=== PATIENT | female | born 1935 | race Caucasian/White ===

== ENCOUNTER 2016-08-22 11:51 | Observation (INO) ==
--- NOTE | 2016-08-22 12:11 | Emergency Department Note ---
Disposition Clinical Impression: Atrial fibrillation with RVR, Shortness of breath Chest pain Qualifiers: Chest pain type: precordial pain Qualified Code(s): R07.2 - Precordial pain Disposition: Admitted As Inpatient Condition: Good Referrals: Miguel Saravia DO [Primary Care Provider] - Forms: ED Satisfaction Letter SOB HPI - General Chief Complaint: ED Shortness of Breath/Dyspnea Stated Complaint: Shortness of breath Time Seen by Provider: 08/22/16 12:05 Source: patient Mode of arrival: private vehicle Limitations: no limitations Nursing Notes Reviewed: Yes Vital Signs Reviewed: Yes - History of Present Illness Patient relates for 3 days she has had some increased shortness of breath that is described as constant little worse with exertion. She also has been having an anterior chest heaviness which is described as constant and nothing significantly making it better or worse. She presented first to the urgent care and she left there to come here. Urgent care did call to say that she had reported some shortness of breath with a history of atrial fibrillation and heart failure in the distant past. He said she had a temperature of 97.5, heart rate of 65, respiratory rate of 17 and a blood pressure 153/74 with a saturation of 99% on room air. They discussed the options for treatment there and her grandson wanted to bring her to the emergency department. Here she has been dropped off and is ambulating within the normal round without difficulty. She denies cough, fevers or chills. She denies any lower extremity swelling. She denies any nausea, diaphoresis, jaw, back or arm pain. 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 On presentation to the emergency department she is still saying she feels some shortness of breath and heaviness to her chest. She indicates she did have one episode of heart failure in 1997 with none subsequently. She has had atrial fibrillation for which she is on xarelto but no other medications for rate control. She states she could not tolerate other medications. She relates her normal heart rate with the atrial fibrillation will run about 90 but that she does have trouble with her anxiety and her heart rate will get up when she is anxious. She states she feels anxious now. Pt Subjective Complaint: shortness of breath, chest pain Onset (ago): day(s) (3) Severity: moderate Consistency/Duration: constant Improves with: nothing Worsens with: exertion Known history of: congestive heart failure (Remote), other (Atrial fibrillation) Associated symptoms: Reports: chest pain. Denies: pain with inspiration, fever , cough, wheezing, sputum production, orthopnea, lower extremity pain, polyuria , polydipsia, parasthesias, palpitations, hemoptysis, diaphoresis, nausea/ vomiting, syncope, abdominal pain, rash Treatment prior to arrival: none Cough present: No - Related Data Home Medications Medication Instructions Recorded Confirmed Beclomethasone Diprop 80mcg [Qvar 1 puff IH DAILY 09/20/15 08/22/16 80 mcg] Cyanocobalamin (B-12) [Vitamin B12] 1,000 mcg IM QMONTH 09/20/15 08/22/16 Furosemide [Lasix] 20 mg PO DAILY 09/20/15 08/22/16 Ranitidine HCl [Zantac] 150 mg PO BID 09/20/15 08/22/16 Cholecalciferol (Vitamin D3) 2,000 unit PO DAILY 02/13/16 08/22/16 [Vitamin D3] LORazepam [Ativan] 1 mg PO HS 02/13/16 08/22/16 Valsartan [Diovan] 80 mg PO BID 07/24/16 08/22/16 Rivaroxaban [Xarelto] 15 mg PO 1700 08/22/16 08/22/16 Previous Rx's Medication Instructions Recorded Acetaminophen [Tylenol] 650 mg PO Q6HR PRN #20 tablet 07/24/16 Allergies Allergy/AdvReac Type Severity Reaction Status Date / Time azithromycin [From Zithromax] Allergy Hives Verified 08/22/16 11:09 diphenhydramine Allergy Hives Verified 08/22/16 11:09 [From Benadryl] All systems ED: reviewed and negative except as stated. Past Medical History - Past Medical History Attestation: Yes The following information was validated with the patient. Source: patient, nursing notes reviewed Medical history: Reports: atrial fibrillation, CHF, coronary artery disease, other Surgical history: Reports: appendectomy, cholecystectomy, hysterectomy, knee replacement (Left), orthopedic, other (L4-5 hemilaminectomy, left shoulder rotator cuff repair), other (Right leg phlebectomy) Psychiatric history: Reports: anxiety SURVEY PROJECT MANAGER history: Reports: no SURVEY PROJECT MANAGER history - Social History Smoking Status: Never smoker Smokeless Tobacco Status: No Alcohol use: Reports: none Drug use: Reports: none Physical Exam - General Limitations: no limitations General appearance: alert, in no apparent distress - Head Head exam: atraumatic, normocephalic, normal inspection - Eye Eye exam: Present: normal appearance, PERRL, EOMI - ENT ENT exam: normal exam, normal oropharynx, mucous membranes moist - Neck Neck exam: Present: normal inspection, full ROM, trachea midline - Chest Chest inspection: Present: normal inspection, symmetric chest wall rise. Absent : tenderness - Respiratory Respiratory exam: Present: normal lung sounds bilaterally. Absent: respiratory distress, wheezes, prolonged expiratory phase - Cardiovascular Cardiovascular exam: Present: regular rate, normal rhythm, tachycardia, irregular rhythm, normal heart sounds - Abdominal Exam Abdominal exam: Present: soft, Non-Tender, normal bowel sounds. Absent: tenderness, distention, guarding, rebound, rigidity - Extremities Exam Extremities exam: Present: normal inspection, full ROM, normal capillary refill. Absent: tenderness, pedal edema - Expanded Lower Extremity Exam Neurovascular/Tendon exam: Present: normal capillary refill. Absent: motor deficit, sensory deficit, tendon deficit Gait: observed and normal - Back Exam Back exam: Present: normal inspection, full ROM. Absent: tenderness, CVA tenderness (R), CVA tenderness (L) - Neurological Exam Neurological exam: Present: alert, oriented X3, normal gait - Psychiatric Psychiatric exam: Present: normal affect, normal mood - Skin Skin exam: Present: warm, dry, intact, normal color. Absent: diaphoresis, pallor Course Course Narrative: 1315: All EKG, x-ray and lab results were discussed with the patient. She has a borderline elevation to her troponin and we will repeat level at 2 PM. The plan is for observation this facility if there is no significant elevation of her troponin. She currently is not having any chest pain or heaviness. 1500: Laboratory results drawn at about 2:30 PM. Results of the troponin is again elevated and is not 0.05. Patient's primary film sorter works through [employer] in [place]. I will first contact Dr. Guillaume to see if he feels comfortable following troponins at this facility or if he would recommend I contact her primary film sorter. 1510: The patient's current heart rate is back up about 120-130 with respiratory rate of 14, excellent oxygenation and a blood pressure of 140/90. I discussed the patient's evaluation with Dr. Guillaume and he desired to speak to the patient's film sorter prior to her being observed at this facility. 1517: I spoken with Dr. Campbell ([phone]) who advises that she has not tolerated beta blockers well nor Rythmol or flecainide. He would recommend that we carefully replaced some fluids and start her on lowest dose of Cardizem. I recontacted Dr. Guillaume and he is agreeable with her observation at this facility. Vital Signs Temperature 97.1 F L 08/22/16 11:52 Pulse Rate 80 08/22/16 11:52 Respiratory Rate 17 08/22/16 11:52 Blood Pressure 146/85 08/22/16 11:52 O2 Sat by Pulse Oximetry 97 08/22/16 11:52 Temperature 97.1 F L 08/22/16 12:53 Pulse Rate 93 08/22/16 14:31 Respiratory Rate 13 08/22/16 14:31 Blood Pressure 157/88 08/22/16 14:31 O2 Sat by Pulse Oximetry 99 08/22/16 14:31 Oxygen Delivery Oxygen Delivery Nasal Cannula Shortness of Breath/Dyspnea - Differential Diagnosis Likely: congestive heart failure, pneumonia - Medical Records Medical records reviewed: Yes I reviewed the patient's medical records. - Lab Data Lab results reviewed: Yes I reviewed the patient's lab results. Result diagrams: 08/22/16 12:20 08/22/16 12:20 Lab Results 08/22/16 08/22/16 08/22/16 Range/Units 12:20 12:20 12:20 WBC 6.7 (4.3-11.1) K/mcL RBC 4.86 (3.82-4.97) M/mcL Hgb 15.2 (11.5-15.4) g/dL Hct 45.2 H (35.3-44.9) % MCV 93.0 (83.0-100.0) fL MCH 31.3 (28.0-33.3) pg MCHC 33.6 (31.6-35.5) g/dL RDW 12.7 (11.5-14.5) % Plt Count 194 (140-400) K/mcL MPV 9.9 (9.4-12.4) fL Immature Gran % 0.1 (0-4) % Seg Neutrophils % 54.2 % Lymphocytes % 36.2 % Monocytes % 6.7 % Eosinophils % 2.1 % Basophils % 0.7 % Neutrophils # 3.6 (1.6-8.9) K/mcL Lymphocytes # 2.4 (0.6-4.6) K/mcL Monocytes # 0.5 (0.0-1.3) K/mcL Eosinophils # 0.1 (0.0-0.6) K/mcL Basophils # 0.1 (0.0-0.2) K/mcL PT 15.9 H (9.4-12.1) Seconds INR 1.5 APTT 51.0 H (26.0-36.0) Seconds Sodium (136-145) mEq/L Potassium (3.5-4.5) mEq/L Chloride (98-109) mEq/L Carbon Dioxide (19-29) mEq/L BUN (7-20) mg/dL Creatinine (0.57-1.11) mg/dL Est GFR ( Amer) (> 60) Est GFR (Non-Af Amer) (> 60) BUN/Creatinine Ratio (6-26) Glucose (70-99) mg/dL Calculated Osmolality (280-300) Calcium (8.6-10.8) mg/dL Troponin I (0-0.03) ng/mL B-Natriuretic Peptide 348 H (0-100) pg/mL 08/22/16 08/22/16 08/22/16 Range/Units 12:20 12:20 14:25 WBC (4.3-11.1) K/mcL RBC (3.82-4.97) M/mcL Hgb (11.5-15.4) g/dL Hct (35.3-44.9) % MCV (83.0-100.0) fL MCH (28.0-33.3) pg MCHC (31.6-35.5) g/dL RDW (11.5-14.5) % Plt Count (140-400) K/mcL MPV (9.4-12.4) fL Immature Gran % (0-4) % Seg Neutrophils % % Lymphocytes % % Monocytes % % Eosinophils % % Basophils % % Neutrophils # (1.6-8.9) K/mcL Lymphocytes # (0.6-4.6) K/mcL Monocytes # (0.0-1.3) K/mcL Eosinophils # (0.0-0.6) K/mcL Basophils # (0.0-0.2) K/mcL PT (9.4-12.1) Seconds INR APTT (26.0-36.0) Seconds Sodium 140 (136-145) mEq/L Potassium 3.8 (3.5-4.5) mEq/L Chloride 98 (98-109) mEq/L Carbon Dioxide 28 (19-29) mEq/L BUN 21 H (7-20) mg/dL Creatinine 1.12 H (0.57-1.11) mg/dL Est GFR ( Amer) 56 L (> 60) Est GFR (Non-Af Amer) 47 L (> 60) BUN/Creatinine Ratio 19 (6-26) Glucose 89 (70-99) mg/dL Calculated Osmolality 292 (280-300) Calcium 10.9 H (8.6-10.8) mg/dL Troponin I 0.04 H* 0.05 H* (0-0.03) ng/mL B-Natriuretic Peptide (0-100) pg/mL - Radiology Data Radiology results reviewed: Yes I reviewed the patient's radiology results. Single view chest x-ray is performed. This does not demonstrate evidence for infiltrate, effusion, pneumothorax, foreign body or heart failure. The cardiac silhouette is normal. I do not see abnormality to the osseous structures of the chest. This is on my interpretation. Impressions Chest X-Ray 08/22/16 12:06 IMPRESSION: Stable cardiomegaly. No other acute cardiopulmonary findings. D/ / Florence Schwarz MD / Florence Schwarz MD Interpreting Provider: Florence Schwarz MD - EKG Data EKG attestation: Yes I reviewed and interpreted this EKG. EKG shows normal: Reports: axis Rate: Reports: tachycardia (127) Rhythm: Reports: A.Fib [place]/QRS: Reports: RBBB Voltage: Reports: c/w LVH Interpretation: Reports: no acute changes, LVH
[2016-08-22 12:30] LABS: Basophils # 0.1 K/mcL (0.0-0.2); Basophils % 0.7 %; Eosinophils # 0.1 K/mcL (0.0-0.6); Eosinophils % 2.1 %; Hematocrit 45.2 % (35.3-44.9); Hemoglobin 15.2 g/dL (11.5-15.4); Immature Granulocytes % 0.1 % (0-4); Lymphocytes # 2.4 K/mcL (0.6-4.6); Lymphocytes % 36.2 %; Mean Corpuscular HGB Conc 33.6 g/dL (31.6-35.5); Mean Corpuscular Hemoglobin 31.3 pg (28.0-33.3); Mean Platelet Volume 9.9 fL (9.4-12.4); Monocytes # 0.5 K/mcL (0.0-1.3); Monocytes % 6.7 %; Neutrophils # 3.6 K/mcL (1.6-8.9); Platelet Count 194 K/mcL (140-400); Red Blood Count 4.86 M/mcL (3.82-4.97); Red Cell Distribution Width 12.7 % (11.5-14.5); Segmented Neutrophils % 54.2 %
[2016-08-22 12:35] LABS: INR 1.5; Prothrombin Time 15.9 Seconds (9.4-12.1)
[2016-08-22 12:44] LABS: Calcium 10.9 mg/dL (8.6-10.8); Potassium 3.8 mEq/L (3.5-4.5)
[2016-08-22] MEDS ORDERED: 0.9 % Sodium Chloride 1,000 ML IVC SCH (15:30)
[2016-08-22] MEDS ORDERED: Diltiazem CD (24hr) 120 MG CAPSULE PO SCH (15:30)
[2016-08-22] MEDS ORDERED: Ondansetron 4 MG/2 ML VIAL IVP PRN (17:00)
[2016-08-22] MEDS ORDERED: *HR* Rivaroxaban 15 MG TABLET PO SCH (17:00)
[2016-08-22] MEDS ORDERED: Naloxone 0.4 MG/ML INJ IVP PRN (17:00)
[2016-08-22] MEDS ORDERED: Acetaminophen 325 MG TABLET PO PRN (17:00)
[2016-08-22] MEDS ORDERED: MOM Conc 10 ML UD.LIQ PO PRN (17:00)
[2016-08-22] MEDS ORDERED: NON-FORMULARY MEDICATION 1 EACH EACH (Cyanocobalamin (B-12) 1,000 MCG) IM SCH (17:00)
[2016-08-22] MEDS: 0.9 % Sodium Chloride 1,000 ML IVC SCH (18:56)
--- NOTE | 2016-08-22 19:36 | Electrocardiograph Report ---
[address] [place], [place] [address] Test Date: 2016-08-22 Pat Name: Sharita Napoles Department: [id number] Room: [facility] Gender: F Jacquard Loom Weaver: [id number] : 1935 Requested By: Zeferino Kendrick Order Number: [id number] Reading MD: Christian Rosa MD Measurements Intervals [place] Rate: 127 P: 155 [place]: 142 QRS: 52 QRSD: 127 T: -74 QT: 336 QTc: 411 Interpretive Statements ECTOPIC ATRIAL TACHYCARDIA RIGHT BUNDLE BRANCH BLOCK LEFT VENTRICULAR HYPERTROPHY Electronically Signed On 08-22-2016 19:34:47 EDT by Christian Rosa MD
[2016-08-22] MEDS: Valsartan 80 MG TABLET PO SCH (20:35)
[2016-08-22] MEDS ORDERED: *HR* LORazepam 1 MG TABLET PO SCH (21:00)
[2016-08-23] MEDS: Valsartan 80 MG TABLET PO SCH (08:58)
[2016-08-23] MEDS ORDERED: Diltiazem CD (24hr) 120 MG CAPSULE PO SCH (09:00)
[2016-08-23] MEDS ORDERED: Furosemide 20 MG TABLET PO SCH (09:00)
[2016-08-23] MEDS ORDERED: Beclomethasone 80mcg MDI IH SCH (09:00)
[2016-08-23] MEDS ORDERED: Cholecalciferol (D-3) 1,000 UNIT TABLET PO SCH (09:00)
[2016-08-23] MEDS: 0.9 % Sodium Chloride 1,000 ML IVC SCH (09:26)
[2016-08-23 10:28] VITALS: BP 147/61
--- NOTE | 2016-08-23 11:33 | Internal Med History&Physical ---
Date of Encounter: 08/23/16 Time of Encounter: 10:50 Assessment and Plan (1) Chest pain Current visit: Yes Status: Acute Repeat cardiac enzymes were ordered through emergency room. She was given Cardizem in ER per recommendation of her information technology internship. Qualifiers: Chest pain type: precordial pain Qualified Code(s): R07.2 - Precordial pain (2) Atrial fibrillation with RVR Current visit: Yes Status: Acute Her rate is controlled. Continue Cardizem and Xarelto. (3) CKD (chronic kidney disease) stage 3, GFR 30-59 ml/min Current visit: Yes Status: Acute She was unaware of this. Will let her PCP further address as needed. Internal Medicine - H&P: HPI Chief complaint: Dyspnea and chest discomfort Admitted From: Home Plans for Post Hospital Care: Home History of present illness: Ms. Napoles is a 81 year old female who came to the emergency room complaining of dyspnea and chest discomfort onset approximately one week earlier. Symptoms seemed to worsen the past 2-3 days. She went to her regularly scheduled outpatient rehabilitation therapy and mentioned her symptoms to the therapist. She was directed to emergency room. Her troponin was borderline elevated in emergency room and contact was made with her information technology internship. He recommended initiation of Cardizem and overnight observation without transferring for further aggressive care. She was admitted to [facility] floor for ongoing care needs. She states she feels significantly improved now and back to her baseline. Her cardiovascular history is significant for hypertension. She has had atrial fibrillation for the last 4-5 years. She has occasional episode of rapid ventricular response per her report. She reports an exercise stress test and echocardiogram done in fall 2015 in [place] were generally unremarkable. An echocardiogram done in December 2013 at [place] showed LVEF of 60% with moderate diastolic dysfunction of the left ventricle reported. There was mild AI, TR, and pulmonary regurgitation. She denies DVT or pulmonary emboli. She does not get angina or anginal equivalents on routine exertion of her daily housework. Past Med Surg Social Fam HX - Past Medical History Medical history: atrial fibrillation, CHF, coronary artery disease, other Psychiatric history: anxiety - Past Surgical History Surgical History: appendectomy, cholecystectomy, hysterectomy, knee replacement , orthopedic, other, other - Social History Smoking Status: Never smoker Smokeless Tobacco Status: No Alcohol use: none Drug use: none Internal Medicine - H&P: Meds Beclomethasone Diprop 80mcg [Qvar 80 mcg] 1 puff IH DAILY 09/20/15 [History] Cyanocobalamin (B-12) [Vitamin B12] 1,000 mcg IM QMONTH 09/20/15 [History] Furosemide [Lasix] 20 mg PO DAILY 09/20/15 [History] Ranitidine HCl [Zantac] 150 mg PO BID 09/20/15 [History] Cholecalciferol (Vitamin D3) [Vitamin D3] 2,000 unit PO HS 02/13/16 [History] LORazepam [Ativan] 1 mg PO HS 02/13/16 [History] Acetaminophen [Tylenol] 650 mg PO Q6HR PRN #20 tablet 07/24/16 [Rx] Valsartan [Diovan] 80 mg PO DAILY 07/24/16 [History] Rivaroxaban [Xarelto] 15 mg PO 1700 08/22/16 [History] Allergies azithromycin [From Zithromax] Allergy (Verified 08/22/16 11:09) Hives diphenhydramine [From Benadryl] Allergy (Verified 08/22/16 11:09) Hives All Systems PM: A 10-system review of systems was performed and is negative for pertinent findings except as documented above in the HPI. Review of systems: Gen.: She states her weight has been stable past few months Cardiovascular: As per history of present illness Respiratory: She smoked from age [age] never up to 1 pack per day. She has a diagnosis of emphysema but does not wear home oxygen. GI: She has had cholecystectomy but denies disorders of her liver or exocrine pancreas : She has had hysterectomy and states she has a "dropped bladder". She denies other kidney or bladder disorders. She was unaware she had chronic kidney disease [from review of previous labs] Neurologic: She denies large distribution strokes or seizures. Endocrine: She has hyperlipidemia but denies diabetes or thyroid disease Hematology/oncology: She denies blood disorders cancers or anemia Psychiatric: She has anxiety but denies depression or other mental health issues [place] skeletal: She has DJD but denies gout or other bone joint or muscle disorders. She has had bilateral shoulder surgery, left total knee replacement , and back surgery. - Constitutional Vitals: Temp Pulse Resp BP Pulse Ox 97.8 F 62 16 147/61 97 08/23/16 10:24 08/23/16 10:24 08/23/16 10:24 08/23/16 10:24 08/23/16 10:24 Exam: Gen.: She is well developed well-nourished female who appears in no severe distress at present time HEENT: Head is atraumatic and normocephalic. Eyes: EOMI. There is no scleral icterus. Mouth: Mucosa is moist. Neck: Supple and nontender. There is no thyromegaly or adenopathy noted. Heart: Regular without murmurs gallops or ectopics. Lungs: No wheezes or crackles are heard. Abdomen: Soft and nontender. No masses or guarding noted. Extremities: There is no cyanosis edema or clubbing noted. Dorsalis pedis and posttibial pulses are trace palpable bilaterally. Neurologic: Mental status: She is talkative and a good historian. Cranial nerves: Smile is symmetric. Forehead wrinkles bilaterally. Tongue protrudes midline. EOMI. Motor: There is no pronator drift. Cerebellar: Finger to nose is intact bilaterally. Skin: Warm and dry Internal Med - H&P Results - Labs CBC & Chem 7: 08/22/16 12:20 08/22/16 12:20 Labs: Cardiac Enzymes 08/22/16 08/23/16 08/23/16 Range/Units 21:02 02:45 08:26 Troponin I 0.05 H* 0.08 H* 0.06 H* (0-0.03) ng/mL - VTE Documentation of Mechanical Device: Graduated compression elastic hosiery
--- NOTE | 2016-08-23 11:48 | Discharge Summary ---
Date of Encounter: 08/23/16 Time of Encounter: 10:50 - Discharge Diagnosis (1) Chest pain Priority: Primary Status: Resolved Qualifiers: Chest pain type: precordial pain Qualified Code(s): R07.2 - Precordial pain (2) Atrial fibrillation with RVR Priority: Secondary Status: Acute (3) CKD (chronic kidney disease) stage 3, GFR 30-59 ml/min Priority: Secondary Status: Chronic - Discharge Medications Prescriptions: Diltiazem CD (24hr) [Cardizem CD] 120 mg PO DAILY #30 cap.er.24h Home Medications: Beclomethasone Diprop 80mcg [QVAR 80 mcg] 1 puff IH DAILY 09/20/15 [History] Cyanocobalamin (B-12) [Vitamin B12] 1,000 mcg IM QMONTH 09/20/15 [History] Furosemide [Lasix] 20 mg PO DAILY 09/20/15 [History] Ranitidine HCl [Zantac] 150 mg PO BID 09/20/15 [History] Cholecalciferol (Vitamin D3) [Vitamin D3] 2,000 unit PO HS 02/13/16 [History] LORazepam [Ativan] 1 mg PO HS 02/13/16 [History] Acetaminophen [Tylenol] 650 mg PO Q6HR PRN #20 tablet 07/24/16 [Rx] Valsartan [Diovan] 80 mg PO DAILY 07/24/16 [History] Rivaroxaban [Xarelto] 15 mg PO 1700 08/22/16 [History] Diltiazem CD (24hr) [Cardizem CD] 120 mg PO DAILY #30 cap.er.24h 08/23/16 [Rx] Allergies/Adverse Reactions: Allergies azithromycin [From Zithromax] Allergy (Verified 08/22/16 11:09) Hives diphenhydramine [From Benadryl] Allergy (Verified 08/22/16 11:09) Hives Date of admission: 08/22/16 16:54 Primary care physician: Miguel Saravia DO - Patient Status Disposition: Home, Self-Care Condition: Good Functional capacity at discharge: independent ambulation Overall status at discharge: patient is progressing back to baseline - Discharge Instructions Follow Up With: Miguel Saravia DO [Primary Care Provider] - 1 week - Diet and Activity Activity: resume usual activities as tolerated Diet: advance to your usual diet Hospital course: Ms. Napoles is a 81 year old female who came to the emergency room complaining of dyspnea and chest discomfort onset approximately one week earlier. Symptoms seemed to worsen the past 2-3 days. She went to her regularly scheduled outpatient rehabilitation therapy and mentioned her symptoms to the therapist. She was directed to emergency room. Her troponin was borderline elevated in emergency room and contact was made with her fibre composite technician. He recommended initiation of Cardizem and overnight observation without transferring for further aggressive care. She was admitted to [facility] for ongoing care needs. Her graphing Orders written by the emergency room physician. I saw her on August 23 and performed a history physical and discharge. Repeat cardiac enzymes showed fluctuation over the next several hours. She had no chest discomfort at all. I felt it was reasonable to continue Cardizem at discharged to lessen AF with RVR and chest discomfort. Her blood pressure remains satisfactory. She will be discharged home and follow with her PCP Dr. Saravia in approximate one week. She was unaware of the presence of chronic kidney disease. Review of past lab work showed estimated GFR of 55 on 01/16/2014. She will discuss this further with her PCP. On August 23 she felt improved and wished to be discharged home which I felt was reasonable. She will follow with Dr. Saravia in approximately one week. He can further address the CKD and mild calcium elevation of 10.9. - Time Spent with Patient Total time spent providing and/or coordinating discharge services: - Constitutional Vitals: Temp Pulse Resp BP Pulse Ox 97.8 F 62 16 147/61 97 08/23/16 10:24 08/23/16 10:24 08/23/16 10:24 08/23/16 10:24 08/23/16 10:24 - VTE Documentation of Mechanical Device: Graduated compression elastic hosiery
== END 2016-08-23 12:40 | disposition home or self-care (01) ==
LOC: INPPIK 11:51 → EMEROOPIK 11:51 → INPPIK 17:09
PROVIDERS: ADMIT Internal Medicine; ATTEND Internal Medicine

== ENCOUNTER 2019-03-24 18:15 | Inpatient (IN) ==
[2019-03-24] MEDS ORDERED: cefTRIAXone 1,000 MG in Water for inj. (sterile) 10 ML IVP ONE (18:44)
[2019-03-24 18:57] LABS: Basophils % 0.1 %; Hematocrit 40.4 % (35.3-44.9); Hemoglobin 13.7 g/dL (11.5-15.4); Immature Granulocytes % 0.4 % (0-4); Lymphocytes # 0.8 K/mcL (0.6-4.6); Lymphocytes % 8.3 %; Mean Corpuscular HGB Conc 33.9 g/dL (31.6-35.5); Mean Corpuscular Hemoglobin 29.8 pg (28.0-33.3); Mean Platelet Volume 10.5 fL (9.4-12.4); Monocytes # 0.3 K/mcL (0.0-1.3); Monocytes % 3.4 %; Neutrophils # 7.9 K/mcL (1.6-8.9); Platelet Count 144 K/mcL (140-400); Red Blood Count 4.59 M/mcL (3.82-4.97); Red Cell Distribution Width 13.5 % (11.5-14.5); Segmented Neutrophils % 87.8 %
[2019-03-24 20:45] LABS: BUN/Creatinine Ratio 22 (6-26); Blood Urea Nitrogen 20 mg/dL (8-23); Calcium 9.9 mg/dL (8.6-10.3); Carbon Dioxide 26 mEq/L (23-29); Chloride 93 mEq/L (98-107); Glucose 177 mg/dL (70-105); Osmolality,Calculated 275 (280-300); Potassium 3.7 mEq/L (3.5-5.1); Sodium 129 mEq/L (136-145); eGFR For African Americans > 60 (> 60); eGFR For Non-African Americans > 60 (> 60)
[2019-03-24] MEDS: Ipratropium/Albuterol Neb 3 ML IH SCH ×2 (20:50→23:40)
[2019-03-24] MEDS ORDERED: Acetaminophen 325 MG TABLET PO ONE (21:11)
[2019-03-24] MEDS: *HR* LORazepam 1 MG TABLET PO SCH (23:08)
[2019-03-24] MEDS: 0.9 % Sodium Chloride 1,000 ML IVC SCH (23:10)
[2019-03-25] MEDS: Ipratropium/Albuterol Neb 3 ML IH SCH ×5 (03:05→21:00)
[2019-03-25] MEDS: MethylPREDNISolone 40 MG/ML VIAL IVP SCH ×3 (05:24→22:03)
[2019-03-25] MEDS: 0.9 % Sodium Chloride 1,000 ML IVC SCH (06:47)
[2019-03-25] MEDS: Breo Ellipta 200-25 Mcg IH SCH (07:53)
[2019-03-25] MEDS: Vitamin B Complex/Vit C/Vit E 1 EACH TABLET PO SCH (07:53)
[2019-03-25] MEDS: Cinnamon Bark [Cinnamon] 500 MG PO SCH (07:53)
[2019-03-25] MEDS: METHYLFOLATE PO SCH (07:53)
[2019-03-25 07:55] LABS: Hemoglobin 12.8 g/dL (11.5-15.4); Immature Granulocytes % 0.5 % (0-4); Lymphocytes # 0.5 K/mcL (0.6-4.6); Lymphocytes % 5.9 %; Mean Corpuscular HGB Conc 33.7 g/dL (31.6-35.5); Mean Platelet Volume 10.7 fL (9.4-12.4); Monocytes # 0.3 K/mcL (0.0-1.3); Monocytes % 4.1 %; Neutrophils # 7.4 K/mcL (1.6-8.9); Platelet Count 130 K/mcL (140-400); Red Blood Count 4.27 M/mcL (3.82-4.97); Red Cell Distribution Width 13.8 % (11.5-14.5); Segmented Neutrophils % 89.5 %; White Blood Count 8.3 K/mcL (4.3-11.1)
[2019-03-25] MEDS: cefTRIAXone 1,000 MG in Water for inj. (sterile) 10 ML IVP SCH (08:02)
[2019-03-25] MEDS: Lactobacillus 1 EACH CAP.SPRINK PO SCH (08:03)
[2019-03-25] MEDS: Fenofibrate 54 MG TABLET PO SCH (08:03)
[2019-03-25] MEDS: Multivit/Ca/Min/Fe/FA 1 TAB TABLET PO SCH (08:04)
[2019-03-25] MEDS: Furosemide 20 MG TABLET PO SCH (08:04)
[2019-03-25] MEDS: Loratadine 10 MG TABLET PO SCH (08:05)
[2019-03-25] MEDS: Fluticasone Propionate Nasal 50 MCG/SPRAY BOTTLE NS SCH (08:06)
[2019-03-25 08:07] LABS: BUN/Creatinine Ratio 23 (6-26); Blood Urea Nitrogen 15 mg/dL (8-23); Carbon Dioxide 26 mEq/L (23-29); Chloride 98 mEq/L (98-107); Glucose 125 mg/dL (70-105); Osmolality,Calculated 274 (280-300); Potassium 3.7 mEq/L (3.5-5.1); Sodium 131 mEq/L (136-145); eGFR For African Americans > 60 (> 60); eGFR For Non-African Americans > 60 (> 60)
[2019-03-25] MEDS: MAGNESIUM CHLORIDE PO SCH (08:11)
[2019-03-25] MEDS ORDERED: Vitamin B Complex/Vit C/Vit E 1 EACH TABLET PO SCH (09:00)
[2019-03-25] MEDS ORDERED: MAGNESIUM CHLORIDE PO SCH (09:00)
[2019-03-25 15:42] LABS: ABG Base Excess 1 mEq/L (-2 to 3); ABG HCO3 26 mEq/L (21-27); ABG Oxygen Saturation 97 % (95-98); ABG PCO2 38 mmHg (35-45); ABG PH 7.44 pH Units (7.32-7.45); ABG PO2 86 mmHg (85-104); ABG TCO2 27 mEq/L (20-26)
[2019-03-25] MEDS: Famotidine 20 MG TABLET PO SCH (17:01)
[2019-03-25] MEDS: *HR* Rivaroxaban 15 MG TABLET PO SCH (17:01)
[2019-03-25] MEDS: Nystatin SUSP 5 ML UD.LIQ PO SCH (21:15)
[2019-03-25] MEDS: *HR* LORazepam 1 MG TABLET PO SCH (21:15)
[2019-03-25] MEDS ORDERED: Acetaminophen 325 MG TABLET PO PRN (21:28)
[2019-03-26] MEDS: Ipratropium/Albuterol Neb 3 ML IH SCH ×5 (00:11→16:07)
[2019-03-26] MEDS: MethylPREDNISolone 40 MG/ML VIAL IVP SCH ×3 (05:14→20:59)
[2019-03-26 07:13] LABS: Basophils % 0.2 %; Hematocrit 35.7 % (35.3-44.9); Hemoglobin 11.9 g/dL (11.5-15.4); Immature Granulocytes % 0.5 % (0-4); Lymphocytes # 0.4 K/mcL (0.6-4.6); Mean Corpuscular HGB Conc 33.3 g/dL (31.6-35.5); Mean Corpuscular Hemoglobin 29.8 pg (28.0-33.3); Mean Corpuscular Volume 89.3 fL (83.0-100.0); Mean Platelet Volume 10.4 fL (9.4-12.4); Monocytes # 0.2 K/mcL (0.0-1.3); Neutrophils # 5.1 K/mcL (1.6-8.9); Platelet Count 114 K/mcL (140-400); Red Cell Distribution Width 14.1 % (11.5-14.5); Segmented Neutrophils % 89.3 %; White Blood Count 5.7 K/mcL (4.3-11.1)
[2019-03-26 07:48] LABS: BUN/Creatinine Ratio 22 (6-26); Blood Urea Nitrogen 15 mg/dL (8-23); Calcium 8.9 mg/dL (8.6-10.3); Carbon Dioxide 28 mEq/L (23-29); Chloride 104 mEq/L (98-107); Glucose 136 mg/dL (70-105); Osmolality,Calculated 289 (280-300); Potassium 3.8 mEq/L (3.5-5.1); Sodium 138 mEq/L (136-145); Troponin I 0.04 ng/mL (< 0.04); eGFR For African Americans > 60 (> 60); eGFR For Non-African Americans > 60 (> 60)
[2019-03-26] MEDS: Nystatin SUSP 5 ML UD.LIQ PO SCH ×4 (08:26→20:59)
[2019-03-26] MEDS: MAGNESIUM CHLORIDE PO SCH (08:26)
[2019-03-26] MEDS: cefTRIAXone 1,000 MG in Water for inj. (sterile) 10 ML IVP SCH (08:27)
[2019-03-26] MEDS: Lactobacillus 1 EACH CAP.SPRINK PO SCH (08:29)
[2019-03-26] MEDS: Multivit/Ca/Min/Fe/FA 1 TAB TABLET PO SCH (08:29)
[2019-03-26] MEDS: Vitamin B Complex/Vit C/Vit E 1 EACH TABLET PO SCH (08:29)
[2019-03-26] MEDS: Loratadine 10 MG TABLET PO SCH (08:29)
[2019-03-26] MEDS: Fenofibrate 54 MG TABLET PO SCH (08:29)
[2019-03-26] MEDS: Furosemide 20 MG TABLET PO SCH (08:29)
[2019-03-26] MEDS: METHYLFOLATE PO SCH (08:31)
[2019-03-26] MEDS: Cinnamon Bark [Cinnamon] 500 MG PO SCH (08:31)
[2019-03-26] MEDS: Fluticasone Propionate Nasal 50 MCG/SPRAY BOTTLE NS SCH (08:31)
[2019-03-26] MEDS: Breo Ellipta 200-25 Mcg IH SCH (08:31)
[2019-03-26] MEDS: Furosemide 20 MG/2 ML VIAL IVP SCH (11:09)
[2019-03-26] MEDS: Famotidine 20 MG TABLET PO SCH (17:08)
[2019-03-26] MEDS: *HR* Rivaroxaban 15 MG TABLET PO SCH (17:08)
[2019-03-26] MEDS: *HR* LORazepam 1 MG TABLET PO SCH (20:59)
[2019-03-26] MEDS: Levalbuterol Neb 1.25 MG/3 ML IH SCH (21:35)
[2019-03-27] MEDS: Levalbuterol Neb 1.25 MG/3 ML IH SCH ×4 (04:03→22:42)
[2019-03-27] MEDS: MethylPREDNISolone 40 MG/ML VIAL IVP SCH ×3 (05:11→21:13)
[2019-03-27 05:31] LABS: Basophils % 0.1 %; Hematocrit 39.8 % (35.3-44.9); Hemoglobin 13.1 g/dL (11.5-15.4); Immature Granulocytes % 0.7 % (0-4); Lymphocytes # 0.7 K/mcL (0.6-4.6); Lymphocytes % 9.5 %; Mean Corpuscular HGB Conc 32.9 g/dL (31.6-35.5); Mean Corpuscular Hemoglobin 29.5 pg (28.0-33.3); Mean Corpuscular Volume 89.6 fL (83.0-100.0); Mean Platelet Volume 10.6 fL (9.4-12.4); Monocytes # 0.2 K/mcL (0.0-1.3); Neutrophils # 6.5 K/mcL (1.6-8.9); Platelet Count 163 K/mcL (140-400); Red Blood Count 4.44 M/mcL (3.82-4.97); Red Cell Distribution Width 14.2 % (11.5-14.5); Segmented Neutrophils % 86.7 %; White Blood Count 7.6 K/mcL (4.3-11.1)
[2019-03-27 05:51] LABS: BUN/Creatinine Ratio 28 (6-26); Blood Urea Nitrogen 21 mg/dL (8-23); Calcium 9.4 mg/dL (8.6-10.3); Carbon Dioxide 30 mEq/L (23-29); Chloride 99 mEq/L (98-107); Glucose 120 mg/dL (70-105); Magnesium 2.1 mg/dL (1.6-2.6); Osmolality,Calculated 286 (280-300); Potassium 3.9 mEq/L (3.5-5.1); Sodium 136 mEq/L (136-145); eGFR For African Americans > 60 (> 60); eGFR For Non-African Americans > 60 (> 60)
[2019-03-27 06:03] LABS: Troponin I 0.05 ng/mL (< 0.04)
[2019-03-27] MEDS: Multivit/Ca/Min/Fe/FA 1 TAB TABLET PO SCH (07:59)
[2019-03-27] MEDS: Lactobacillus 1 EACH CAP.SPRINK PO SCH (07:59)
[2019-03-27] MEDS: Vitamin B Complex/Vit C/Vit E 1 EACH TABLET PO SCH (07:59)
[2019-03-27] MEDS: Fenofibrate 54 MG TABLET PO SCH (07:59)
[2019-03-27] MEDS: *HR* LORazepam 0.5 MG TABLET PO PRN ×2 (07:59→15:42)
[2019-03-27] MEDS: cefTRIAXone 1,000 MG in Water for inj. (sterile) 10 ML IVP SCH (08:00)
[2019-03-27] MEDS: Loratadine 10 MG TABLET PO SCH (08:00)
[2019-03-27] MEDS: Furosemide 20 MG/2 ML VIAL IVP SCH (08:00)
[2019-03-27] MEDS: Breo Ellipta 200-25 Mcg IH SCH (08:20)
[2019-03-27] MEDS: Cinnamon Bark [Cinnamon] 500 MG PO SCH (08:20)
[2019-03-27] MEDS: METHYLFOLATE PO SCH (08:20)
[2019-03-27] MEDS: Fluticasone Propionate Nasal 50 MCG/SPRAY BOTTLE NS SCH (08:21)
[2019-03-27] MEDS: Nystatin SUSP 5 ML UD.LIQ PO SCH ×4 (08:22→20:15)
[2019-03-27] MEDS: MAGNESIUM CHLORIDE PO SCH (08:45)
[2019-03-27] MEDS: Famotidine 20 MG TABLET PO SCH (16:57)
[2019-03-27] MEDS: *HR* Rivaroxaban 15 MG TABLET PO SCH (16:57)
[2019-03-27] MEDS: *HR* LORazepam 1 MG TABLET PO SCH (20:15)
[2019-03-28] MEDS: *HR* LORazepam 0.5 MG TABLET PO PRN (03:56)
[2019-03-28] MEDS: Levalbuterol Neb 1.25 MG/3 ML IH SCH (04:52)
[2019-03-28] MEDS: MethylPREDNISolone 40 MG/ML VIAL IVP SCH (05:48)
[2019-03-28] MEDS ORDERED: *HR* Midazolam HCl 5 MG/5 ML VIAL IVP ONE ×2 (06:23→06:26)
[2019-03-28] MEDS ORDERED: Amiodarone Premix 150 MG/100 ML BAG IVPB ONE (06:26)
[2019-03-28] MEDS ORDERED: AMIODARONE IVPB ONE (06:30)
[2019-03-28] MEDS ORDERED: D5 IVPB ONE (06:30)
[2019-03-28] MEDS ORDERED: WATER IVPB ONE (06:30)
[2019-03-28 07:12] LABS: Basophils % 0.3 %; Hematocrit 38.5 % (35.3-44.9); Hemoglobin 12.4 g/dL (11.5-15.4); Immature Granulocytes % 1.2 % (0-4); Lymphocytes # 1.1 K/mcL (0.6-4.6); Lymphocytes % 15.8 %; Mean Corpuscular HGB Conc 32.2 g/dL (31.6-35.5); Mean Corpuscular Hemoglobin 29.5 pg (28.0-33.3); Mean Corpuscular Volume 91.4 fL (83.0-100.0); Mean Platelet Volume 10.1 fL (9.4-12.4); Monocytes # 0.3 K/mcL (0.0-1.3); Monocytes % 4.7 %; Neutrophils # 5.3 K/mcL (1.6-8.9); Platelet Count 180 K/mcL (140-400); Red Blood Count 4.21 M/mcL (3.82-4.97); Red Cell Distribution Width 14.2 % (11.5-14.5); White Blood Count 6.8 K/mcL (4.3-11.1)
[2019-03-28 07:20] LABS: INR 1.3
[2019-03-28 07:23] LABS: Activated Partial Thrombo Time 30.2 Seconds (26.0-36.0)
[2019-03-28 07:27] VITALS: BP 72/39
[2019-03-28 07:30] LABS: Alanine Aminotransferase 27 Units/L (7-52); Albumin 3.2 g/dL (3.5-5.7); Albumin/Globulin Ratio 1.3 (1.1-2.2); Alkaline Phosphatase 27 Units/L (34-104); Aspartate Amino Transferase 25 Units/L (13-39); BUN/Creatinine Ratio 30 (6-26); Bilirubin,Total 0.5 mg/dL (0.3-1.0); Blood Urea Nitrogen 21 mg/dL (8-23); Calcium 10.8 mg/dL (8.6-10.3); Carbon Dioxide 28 mEq/L (23-29); Chloride 101 mEq/L (98-107); Globulin 2.5 g/dL (2.4-3.5); Glucose 151 mg/dL (70-105); Osmolality,Calculated 288 (280-300); Potassium 3.6 mEq/L (3.5-5.1); Sodium 136 mEq/L (136-145); Total Protein 5.7 g/dL (6.4-8.9); eGFR For African Americans > 60 (> 60); eGFR For Non-African Americans > 60 (> 60)
[2019-03-28] MEDS ORDERED: Amiodarone Premix 360 MG/200 ML BAG IVC SCH (07:30)
[2019-03-28 08:49] LABS: Magnesium 3.3 mg/dL (1.6-2.6); Phosphorous 3.3 mg/dL (2.7-4.5)
[2019-03-28] MEDS: Fluticasone Propionate Nasal 50 MCG/SPRAY BOTTLE NS SCH (09:27)
[2019-03-28] MEDS: Cinnamon Bark [Cinnamon] 500 MG PO SCH (09:28)
[2019-03-28] MEDS: Nystatin SUSP 5 ML UD.LIQ PO SCH (09:28)
[2019-03-28] MEDS: METHYLFOLATE PO SCH (09:28)
[2019-03-28] MEDS: Breo Ellipta 200-25 Mcg IH SCH (09:28)
[2019-03-28] MEDS: Loratadine 10 MG TABLET PO SCH (09:28)
[2019-03-28] MEDS: Vitamin B Complex/Vit C/Vit E 1 EACH TABLET PO SCH (09:29)
[2019-03-28] MEDS: Multivit/Ca/Min/Fe/FA 1 TAB TABLET PO SCH (09:29)
[2019-03-28] MEDS: MAGNESIUM CHLORIDE PO SCH (09:30)
[2019-03-28] MEDS: Furosemide 20 MG/2 ML VIAL IVP SCH (09:31)
[2019-03-28] MEDS: Fenofibrate 54 MG TABLET PO SCH (09:42)
[2019-03-28] MEDS: Lactobacillus 1 EACH CAP.SPRINK PO SCH (09:42)
[2019-03-28] MEDS: cefTRIAXone 1,000 MG in Water for inj. (sterile) 10 ML IVP SCH (09:46)
== END 2019-03-28 10:15 | disposition other institution (70) | DRG 191 ==
LOC: EMEROOPIK 18:15 → INPPIK 18:15
PROVIDERS: ADMIT Family Medicine; ATTEND Family Medicine